=== PATIENT | male | born 1990 | race Caucasian/White ===

== ENCOUNTER 2023-05-17 09:01 | Observation (INO) | payer OTHER, SELFPAY ==
--- NOTE | ~2023-05-17 | CT_ITS ---
EXAMINATION: CT ABDOMEN AND PELVIS WITH CONTRAST CLINICAL INFORMATION: Right lower quadrant abdominal pain. Concern for appendicitis. COMPARISON: None available. TECHNIQUE: Multidetector volumetric images were obtained from the superior aspect of the liver through the pubic symphysis following administration 85 mL of Omnipaque 350 intravenous contrast. Sagittal and coronal reformatted images were obtained on the technologist's workstation. Oral contrast: No This CT examination was performed using dose optimization techniques as appropriate, variously including the following: *Automated exposure control *Adjustment of mA and/or kV according to patient size (this includes techniques or standardized protocols for targeted exams where dose is matched to indication/reason for exam; i.e. extremities or head) *Use of iterative reconstruction technique DLP: 575 mGy-cm FINDINGS: LUNG BASES: No pulmonary consolidation or pleural effusion. HEPATOBILIARY: The liver has normal size, shape, and attenuation. Gallbladder has a normal appearance. No radiopaque stones, wall thickening or pericholecystic fluid. No dilated bile ducts. PANCREAS: No edema, pancreatic ductal dilatation or mass. SPLEEN: Normal. ADRENAL GLANDS: Normal. KIDNEYS AND URETERS: The kidneys enhance symmetrically and have normal size and cortical thickness. No perinephric fluid collection, urolithiasis or hydroureteronephrosis. BLADDER: Normal. No calculi or wall thickening. BOWEL AND PERITONEUM: Stomach is unremarkable. No dilated loops of bowel. No abdominal free fluid or pneumoperitoneum. The proximal appendix is normal. There is mild haziness of fat around the tip of the appendix. The appendiceal tip measures 0.8 cm diameter. Moderate amount of fecal material is present within the colon. There appear to be some diverticula of the colon without evidence of diverticulitis. ABDOMINAL WALL: Unremarkable. VASCULATURE: Normal. LYMPH NODES: No pathologic sized lymph nodes in the abdomen or pelvis. No inguinal lymphadenopathy. PELVIC VISCERA: Prostate gland is unremarkable. No pelvic abscess. MUSCULOSKELETAL: No acute or suspicious osseous abnormality. CT/CT abdomen pelvis w IV con IMPRESSION: The imaging findings are suspicious for tip appendicitis (due to observation of slight prominence of the appendiceal tip and adjacent haziness/inflammation of the periappendiceal fat). The critical test result was discussed with Lilibeth Arevalo at 12:30 PM on 05/17/2023 and it was ascertained that the content and the importance of the findings was understood at the time of the direct communication.
[2023-05-17 09:11] VITALS: BP 146/94; PULSE 127; RESP 18; TEMP 36.7; O2SAT 99; BMI 28.2
--- NOTE | 2023-05-17 09:13 | ED_ITS ---
HPI - General Adult General Chief complaint: Abdominal Pain Stated complaint: Abd pain Time Seen by Provider: 05/17/23 09:05 Source: patient Mode of arrival: ambulatory Limitations: no limitations History of Present Illness HPI narrative: Patient is a 32 year old assigned male at with a history of IBS presenting to the emergency department today with right lower quadrant abdominal pain. Patient states that over the last 18 hours he has had right lower quadrant abdominal pain. Patient states that it started in the center of his stomach and how now settled into the right lower quadrant. Patient states that he has some nausea but has not vomited. Patient denies any dizziness, lightheadedness, vomiting, fever, chills, blurry vision, double vision, loss of vision, chest pain, difficulty breathing, shortness of breath, back pain, night sweats, pain with urination, increased urinary frequency, increased urinary urgency, blood in his urine or stool, syncope or a near syncopal episode, recent trauma or falls, bowel incontinence, bladder incontinence, bowel retention, bladder retention, or any other complaints at this time. Onset (ago): hour(s) Location: abdomen and right Severity scale (1-10): 4 Relieving factors: none Exacerbating factors: none Associated symptoms: nausea/vomiting Treatments prior to arrival: none Related Data Home Medications Medication Instructions Recorded Confirmed No Known Home Meds 05/17/23 05/17/23 Allergies Allergy/AdvReac Type Severity Reaction Status Date / Time No Known Allergies Allergy Verified 05/17/23 09:06 Review of Systems 2 Constitutional: Constitutional: Reports no additional constitutional complaints, Denies chills, Denies fever(s) and Denies night sweats Eyes: Eyes: Reports no additional eye complaints, Denies blurry vision, Denies change in vision, Denies diplopia, Denies eye discharge, Denies loss of vision and Denies eye pain ENT: Denies dizziness Cardiovascular: Cardiovascular: Reports no additional cardiovascular complaints, Denies chest pain, Denies lightheadedness, Denies Loss of Consciousness and Denies dyspnea Respiratory: Respiratory: Reports no additional respiratory complaints and Denies dyspnea Gastrointestinal: Gastrointestinal: Reports no additional gastrointestinal complaints, Reports abdominal pain, Denies melena, Denies hematochezia, Denies change in bowel habits, Denies change in stool character, Reports nausea and Denies vomiting Genitourinary: Genitourinary: Reports no additional male genitourinary complaints, Denies hematuria, Denies oliguria, Denies difficulty urinating, Denies dysuria, Denies urinary frequency, Denies urinary hesitancy, Denies urinary incontinence and Denies urinary urgency Musculoskeletal: Musculoskeletal: Reports no additional musculoskeletal complaints, Denies numbness and Denies tingling Neurologic: Denies dizziness, Denies loss of vision, Denies numbness and Denies tingling Psychiatric: Psychiatric: Reports no additional psychiatric complaints Endocrine: Endocrine: Reports no additional endocrine complaints Hematologic/Lymphatic: Hematologic/Lymphatic: Reports no additional hematologic/lymphatic complaints Allergic/Immunologic: Allergic/Immunologic: Reports no additional allergic/immunologic complaints PMFSH Past Medical History Attestation statement: The following information was validated with the patient. Source: old records reviewed and nursing notes reviewed Surgical History (Updated 05/17/23 @ 12:51 by Augustina Burleson PA-C) Hx of bilateral inguinal hernia repair Social History Social History Alcohol intake: current Patient Tobacco Use Status: Former Tobacco user Smoked in Last 30 Days: Yes Use of substances other than those prescribed or required for medical reasons: No Advance Directives: No Advance Directives Information Provided: No Nutrition Risks: No Nutritional Risk Physical Exam ED Vital Signs: Vital Signs - 24 hr 05/17/23 09:11 05/17/23 10:03 05/17/23 10:05 Temperature 98.1 F 98.3 F Pulse Rate 127 H 94 Respiratory Rate 18 18 15 Blood Pressure 146/94 H 133/74 Pulse Oximetry 99 96 Oxygen Delivery Method Room Air Room Air 05/17/23 11:19 Temperature 98.3 F Pulse Rate 94 Respiratory Rate 14 Blood Pressure 120/83 Pulse Oximetry 97 Oxygen Delivery Method Room Air BMI result Body Mass Index 28.2 Const General: cooperative, no acute distress, alert and awake Nutritional Appearance: well nourished Orientation/consciousness: patient oriented x3 Limitations: no limitations HENMT Head: Yes normal to inspection and Yes atraumatic Ears: hearing grossly normal bilaterally and external ears normal General nose exam: Normal external nose present, no nasal discharge noted and no epistaxis Face and sinus: Yes normal facial exam, No abrasion and No laceration Mouth: Normal oral and palatal mucosa present, no drooling and no muffled voice Eyes General: appearance normal, both eyes and all related structures Periorbital: periorbital findings normal Eyelids: Yes eyelids normal Conjunctivae: conjunctivae normal Pupils: Equal, round and reactive pupils present EOM: EOMs intact bilaterally Neck Neck: Yes normal visual inspection, Yes full ROM and Yes no lymphadenopathy Chest Chest palpation & inspection: normal inspection of the chest Resp Effort & Inspection: normal respiratory effort and able to speak in complete sentences GI Inspection: Yes normal to inspection Palpation (GI): Soft to palpation, not firm, Tenderness to palpation present (GI) in the RLQ, no guarding and not rigid Neuro General: patient oriented x3 and moves all extremities Cranial nerves: Yes Equal, round and reactive pupils present Cognition (Neuro): normal cognition Motor exam (neuro): 5/5 motor strength present throughout Sensory Exam: Normal double simultaneous stimulation for sensation Coordination: [id number] test normal Extrem General: Yes normal to inspection, Yes full ROM and Yes capillary refill normal Psych Appearance: grossly normal Mental Status: mental status grossly normal Affect: normal affect Attitude: cooperative Thought process: Normal thought process present Thought content: Normal thought content present Insight: Good insight present (Psych) Medications Administered Generic Name Dose Route Start Last Admin Trade Name Freq PRN Reason Stop Dose Admin Piperacillin Sod/Tazobactam 50 mls @ 100 mls/hr 05/17/23 12:45 05/17/23 13:51 Sod 3.375 gm/ Sodium Chloride IV 100 mls/hr Q6H HUONG Administration Discontinued Medications Generic Name Dose Route Start Last Admin Trade Name Freq PRN Reason Stop Dose Admin Iohexol 85 ml 05/17/23 10:52 05/17/23 10:52 Iohexol 350 Mg/Ml 100 Ml Infus..Btl IV 05/17/23 10:53 85 ml ONCE ONE Administration Morphine Sulfate 4 mg 05/17/23 09:06 05/17/23 10:03 Morphine Sulfate 4 Mg/Ml Cartridge IVPUSH 05/17/23 09:07 4 mg ONCE ONE Administration Protocol Ondansetron HCl 4 mg 05/17/23 09:06 05/17/23 10:04 Ondansetron Hcl 4 Mg/2 Ml Vial IVPUSH 05/17/23 09:07 4 mg ONCE ONE Administration Medical Decision Making Medical Decision Making MDM Narrative: Patient is a 32 year old assigned male at with a history of IBS presenting to the emergency department today with RLQ abdominal pain. Patient's physical exam was as noted in the physical exam portion of this note. Patient's blood work showed a mild WBC elevation of 11.6 but was otherwise unremarkable. Patient's urine showed no acute process. Patient's abdomen/pelvis CT showed evidence of an appendicitis. I spoke to the surgical team who agreed to admission. I explained my physical exam findings as well as all test results to the patient. I answered all questions asked by the patient. Patient verbalized agreement and understanding with this treatment plan and admission. Differential Diagnosis Differential Diagnoses: The differential diagnosis associated with the presentation includes Abdominal pain Appendicitis IBS Admission/Observation Consideration of admission/observation: Escalation of care including admission/observation considered Patient admitted. 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 My interpretation of these results are in the MDM Rationale portion of this note. 05/17/23 09:27 05/17/23 09:27 Labs: Lab Results 05/17/23 05/17/23 05/17/23 Range/Units 09:17 09:27 12:39 WBC 11.6 H (4.8-10.8) X10*3/uL RBC 5.14 (4.60-5.80) X10*6/uL Hgb 15.1 (14.0-18.0) g/dl Hct 44.5 (42.0-52.0) % MCV 86.6 (80.0-98.0) fL MCH 29.4 (27.0-33.0) pg MCHC 33.9 (31.0-36.0) g/dl RDW 12.3 (11.0-16.0) % Plt Count 269 (160-400) X10*3/uL MPV 8.8 L (9.4-12.4) fL Immature Gran % (Auto) 0.3 (0.0-0.4) % Neut % (Auto) 72.0 (45-73) % Lymph % (Auto) 20.6 (20-40) % [place] % (Auto) 6.2 (2-11) % Eos % (Auto) 0.7 (0-4) % Baso % (Auto) 0.2 (0-2) % Lymph # (Auto) 2.4 (1.2-4.9) X10*3/uL [place] # (Auto) 0.7 (0.1-1.2) X10*3/uL Eos # (Auto) 0.1 (0.0-0.4) X10*3/uL Baso # (Auto) 0.0 (0.0-0.2) X10*3/uL Abs Immat Gran (auto) 0.04 H (0.00-0.03) X10*3/uL Absolute Neuts (auto) 8.3 (2.0-8.3) x10*3/uL Absolute Nucleated RBC 0.000 (0.0-0.012) X10*3/uL Nucleated RBC % (auto) 0.0 (0.0-0.2) /100WBC Sodium 141 (135-145) mmol/L Potassium 3.3 (3.3-5.1) mmol/L Chloride 106 (96-108) mmol/L Carbon Dioxide 28 (22-29) mmol/L Anion Gap 10 L (12-20) BUN 14 (9-16) mg/dL Creatinine 1.16 (0.5-1.4) mg/dL Estim Creat Clear Calc 109.9 Estimated GFR > 60 Random Glucose 137 H (60-115) mg/dL Lactic Acid 1.2 (0.5-2.0) mmol/L Calcium 9.6 (8.4-10.2) mg/dL Magnesium 2.1 (1.6-2.6) mg/dL Total Bilirubin 0.6 (0.0-1.0) mg/dL AST 25 (5-37) U/L ALT 33 (0-40) U/L Alkaline Phosphatase 94 (39-117) U/L Total Protein 7.6 (6.5-8.0) g/dL Albumin 4.8 (3.5-5.0) g/dL Urine Color Yellow Urine Appearance Clear Urine pH 7.0 (5.0-9.0) Ur Specific [place] >= 1.030 H (1.005-1.025) Urine Protein Negative (Neg-Trace) mg/dL Urine Glucose (UA) Negative (Negative) mg/dL Urine Ketones Negative (Negative) mg/dL Urine Blood Negative (Negative) Urine Nitrite Negative (Negative) Ur Leukocyte Esterase Negative (Negative) Influenza Type A (PCR) NEGATIVE (Negative) Influenza Type B (PCR) NEGATIVE (Negative) RSV RNA Qual (PCR) NEGATIVE (Negative) SARS-CoV-2 RNA (RT-PCR) NEGATIVE (Negative) Independent Interpretation I performed an independent interpretation of an: CT Scan Interpretation: My interpretation is in agreement with the radiologist's impression of this imaging study. - EXAMINATION: CT ABDOMEN AND PELVIS WITH CONTRAST CLINICAL INFORMATION: Right lower quadrant abdominal pain. Concern for appendicitis. COMPARISON: None available. TECHNIQUE: Multidetector volumetric images were obtained from the superior aspect of the liver through the pubic symphysis following administration 85 mL of Omnipaque 350 intravenous contrast. Sagittal and coronal reformatted images were obtained on the technologist's workstation. Oral contrast: No This CT examination was performed using dose optimization techniques as appropriate, variously including the following: *Automated exposure control *Adjustment of mA and/or kV according to patient size (this includes techniques or standardized protocols for targeted exams where dose is matched to indication/reason for exam; i.e. extremities or head) *Use of iterative reconstruction technique DLP: 575 mGy-cm FINDINGS: LUNG BASES: No pulmonary consolidation or pleural effusion. HEPATOBILIARY: The liver has normal size, shape, and attenuation. Gallbladder has a normal appearance. No radiopaque stones, wall thickening or pericholecystic fluid. No dilated bile ducts. PANCREAS: No edema, pancreatic ductal dilatation or mass. SPLEEN: Normal. ADRENAL GLANDS: Normal. KIDNEYS AND URETERS: The kidneys enhance symmetrically and have normal size and cortical thickness. No perinephric fluid collection, urolithiasis or hydroureteronephrosis. BLADDER: Normal. No calculi or wall thickening. BOWEL AND PERITONEUM: Stomach is unremarkable. No dilated loops of bowel. No abdominal free fluid or pneumoperitoneum. The proximal appendix is normal. There is mild haziness of fat around the tip of the appendix. The appendiceal tip measures 0.8 cm diameter. Moderate amount of fecal material is present within the colon. There appear to be some diverticula of the colon without evidence of diverticulitis. ABDOMINAL WALL: Unremarkable. VASCULATURE: Normal. LYMPH NODES: No pathologic sized lymph nodes in the abdomen or pelvis. No inguinal lymphadenopathy. PELVIC VISCERA: Prostate gland is unremarkable. No pelvic abscess. MUSCULOSKELETAL: No acute or suspicious osseous abnormality. CT/CT abdomen pelvis w IV con IMPRESSION: The imaging findings are suspicious for tip appendicitis (due to observation of slight prominence of the appendiceal tip and adjacent haziness/inflammation of the periappendiceal fat). The critical test result was discussed with Lilibeth Arevalo at 12:30 PM on 05/17/2023 and it was ascertained that the content and the importance of the findings was understood at the time of the direct communication. Dictated By: Kyle Garcia MD Signed By: Electronically signed by Kyle Garcia MD 05/17/23 1232 Radiology Impression Discussion of test interpretation with radiology: I have reviewed the radiologist's reading. Critical Care Time Critical Care Time Critical Care Time: Yes Total Critical Care Time: 79 Attestation: I spent 79 minutes of Critical Care Time with this patient. This does not include time spent on separately reported billable procedures. Discharge Plan Discharge Clinical Impression: Acute appendicitis Patient Disposition: Admitted As Inpatient
--- NOTE | 2023-05-17 09:25 | PC.NURSE ---
ramón osorio aware had covid 3 weeks ago, pcr sent
[2023-05-17 09:32] LABS: MANUAL DIFF FLAG NO
[2023-05-17 09:35] LABS: Basophils Percent Auto 0.2 % (0-2); Eosinophils Absolute Auto 0.1 X10*3/uL (0.0-0.4); Eosinophils Percent Auto 0.7 % (0-4); Hematocrit 44.5 % (42.0-52.0); Hemoglobin 15.1 g/dl (14.0-18.0); Imm Gran Abs Auto 0.04 X10*3/uL (0.00-0.03); Imm Gran Pct Auto 0.3 % (0.0-0.4); Lymphocytes Absolute Auto 2.4 X10*3/uL (1.2-4.9); Lymphocytes Percent Auto 20.6 % (20-40); Mean Corpuscular HGB Conc 33.9 g/dl (31.0-36.0); Mean Corpuscular Hemoglobin 29.4 pg (27.0-33.0); Mean Corpuscular Volume 86.6 fL (80.0-98.0); Mean Platelet Volume 8.8 fL (9.4-12.4); Monocytes Absolute Auto 0.7 X10*3/uL (0.1-1.2); Monocytes Percent Auto 6.2 % (2-11); Neutrophils Absolute Auto 8.3 x10*3/uL (2.0-8.3); Platelet Count 269 X10*3/uL (160-400); Red Blood Count 5.14 X10*6/uL (4.60-5.80); Red Cell Distribution Width 12.3 % (11.0-16.0); White Blood Count 11.6 X10*3/uL (4.8-10.8)
[2023-05-17 09:47] LABS: Lactic Acid 1.2 mmol/L (0.5-2.0)
[2023-05-17 09:52] LABS: Alanine Aminotransferase 33 U/L (0-40); Albumin Level 4.8 g/dL (3.5-5.0); Alkaline Phosphatase 94 U/L (39-117); Anion Gap 10 (12-20); Aspartate Amino Transferase 25 U/L (5-37); Bilirubin Total 0.6 mg/dL (0.0-1.0); Blood Urea Nitrogen 14 mg/dL (9-16); Calcium 9.6 mg/dL (8.4-10.2); Carbon Dioxide 28 mmol/L (22-29); Chloride 106 mmol/L (96-108); Creatinine Clr Calc Pharmacy 109.9; Estimated Glomerular Filt Rate > 60; Glucose Random 137 mg/dL (60-115); Magnesium 2.1 mg/dL (1.6-2.6); Potassium 3.3 mmol/L (3.3-5.1); Sodium 141 mmol/L (135-145); Total Protein 7.6 g/dL (6.5-8.0)
[2023-05-17 10:03] VITALS: RESP 18
[2023-05-17] MEDS: Morphine Sulfate 4 MG/ML CARTRIDGE IVPUSH ×3 (10:03→19:00)
[2023-05-17] MEDS: ondansetron HCL 4 MG/2 ML VIAL IVPUSH (10:04)
[2023-05-17 10:05] VITALS: BP 133/74; PULSE 94; RESP 15; TEMP 36.8; O2SAT 96
[2023-05-17 10:18] LABS: Influenza A PCR NEGATIVE (Negative); Influenza B PCR NEGATIVE (Negative); Resp Syncy Virus RNA Qual PCR NEGATIVE (Negative); SARS COV2 PCR INHOUSE NEGATIVE (Negative)
[2023-05-17] MEDS: iohexoL 350 MG/ML 100 ML INFUS..BTL 85 ML IV (10:52)
[2023-05-17 11:19] VITALS: BP 120/83; PULSE 94; RESP 14; TEMP 36.8; O2SAT 97
--- NOTE | 2023-05-17 12:44 | P.HPGS_ITS ---
<Statement entered by Guevara Ang MD - 05/17/23 13:50> 32-year-old male patient with a recurrent episode of abdominal pain in the right lower quadrant. The previous episode occurred approximately 6 months ago but subsequently resolved. The current episode began approximately 16 hours prior to my examination. He denies any associated nausea, vomiting, diarrhea or co nstipation. Examination reveals tenderness in the right lower quadrant over McBurney's point. Workup is consistent with acute appendicitis. We discussed treatment with antibiotics verses laparoscopic appendectomy. As this is recurrent episode laparoscopic appendectomy is recommended. After discussion of the procedure, risks, and alternatives, he consents to the laparoscopic or possible open appendectomy. History of Present Illness History of Present Illness Date of Service: 05/17/23 <Augustina Burleson PA-C - Last Filed: 05/17/23 13:11> 05/18/23 <Guevara Ang MD - Last Filed: 05/18/23 09:21> Chief complaint: acute appendicitis <Augustina Burleson PA-C - Last Filed: 05/17/23 13:11> Narrative: Nayan Licona is a 32 year old male with PMH of IBS who presented to the ED with complaints of RLQ abdominal pain. He reports the pain started last night and was periumbilical it eventually migrated and persisted in the RLQ. It is sharp in nature and associated with nausea without vomiting. He denies fevers, chills, diarrhea, constipation. He was tachycardic upon arrival. Work up in the ED included CBC, BMP, LFTs which was significant for a leukocytosis of 11.6. CT scan abd/pelvis was performed which showed slight prominence of the appendiceal tip and adjacent haziness/inflammation of the periappendiceal fat. <Augustina Burleson PA-C - Last Filed: 05/17/23 13:11> Review of Systems Constitutional: Constitutional: Denies chills and Denies fever(s) <RICK Everett Last Filed: 05/17/23 13:11> ENT: Denies dizziness <RICK Everett Last Filed: 05/17/23 13:11> Cardiovascular: Cardiovascular: Denies chest pain and Denies dyspnea <Augustina Burleson PA-C - Last Filed: 05/17/23 13:11> Respiratory: Respiratory: Denies dyspnea <Augustina Burleson PA-C - Last Filed: 05/17/23 13:11> Gastrointestinal: Gastrointestinal: Reports as per HPI <Augustina Burleson PA-C - Last Filed: 05/17/23 13:11> Genitourinary: Genitourinary: Denies hematuria and Denies dysuria <Augustina Burleson PA-C - Last Filed: 05/17/23 13:11> Integumentary/Breasts: Skin/Breast: Denies rash and Denies jaundice <Augustina Burleson PA-C - Last Filed: 05/17/23 13:11> Neurologic: Denies dizziness <Augustina Burleson PA-C - Last Filed: 05/17/23 13:11> [facility] Surgical History Surgical History: Surgical History (Updated 05/17/23 @ 12:51 by Augustina Burleson PA-C) Hx of bilateral inguinal hernia repair <Augustina Burleson PA-C - Last Filed: 05/17/23 13:11> Social History Social History: Social History Alcohol intake: current Patient Tobacco Use Status: Former Tobacco user Smoked in Last 30 Days: Yes Use of substances other than those prescribed or required for medical reasons: No Advance Directives: No Advance Directives Information Provided: No Nutrition Risks: No Nutritional Risk <Augustina Burleson PA-C Last Filed: 05/17/23 13:11> Meds Allergies/Adverse reactions: Allergies Allergy/AdvReac Type Severity Reaction Status Date / Time No Known Allergies Allergy Verified 05/17/23 09:06 <Augustina Burleson PA-C - Last Filed: 05/17/23 13:11> Home medications: Home Medications Medication Instructions Recorded Confirmed Last Taken Type No Known Home Meds 05/17/23 05/17/23 Unknown History <RICK Everett Last Filed: 05/17/23 13:11> Physical Exam Vital Signs: Vital Signs: Last Vital Signs Temp 98.3 F 05/17/23 11:19 Pulse 94 05/17/23 11:19 Resp 14 05/17/23 11:19 BP 120/83 05/17/23 11:19 Pulse Ox 97 05/17/23 11:19 O2 Del Method Room Air 05/17/23 11:19 BMI result Body Mass Index 28.2 <FAINA Everett Last Filed: 05/17/23 13:11> Const: General: comfortable, no acute distress and alert <FAINA Everett Last Filed: 05/17/23 13:11> Orientation/consciousness: patient oriented x3 <FAINA Everett Last Filed: 05/17/23 13:11> Neck: Neck: Yes no JVD <FAINA Everett Last Filed: 05/17/23 13:11> Resp: Effort & Inspection: normal respiratory effort <FAINA Everett Last Filed: 05/17/23 13:11> GI: Inspection: No distended and Yes scar (well healed b/l open inguinal hernia repair scars) <FAINA Everett Last Filed: 05/17/23 13:11> Palpation (GI): Soft to palpation, Tenderness to palpation present (GI) in the RLQ, at McBurney's point and Rovsing's sign positive, no guarding and not rigid <FAINA Everett Last Filed: 05/17/23 13:11> Skin: General skin exam: no rashes or lesions noted and no jaundice <FAINA Everett Last Filed: 05/17/23 13:11> Neuro: General: patient oriented x3 and moves all extremities <Augustina Burleson PA-C Last Filed: 05/17/23 13:11> Results Results Labs: Short CBC 05/17/23 Range/Units 09:27 WBC 11.6 H (4.8-10.8) X10*3/uL Hgb 15.1 (14.0-18.0) g/dl Hct 44.5 (42.0-52.0) % Plt Count 269 (160-400) X10*3/uL BMP 05/17/23 09:27 Sodium 141 Potassium 3.3 Chloride 106 Carbon Dioxide 28 BUN 14 Creatinine 1.16 Calcium 9.6 Liver Function 05/17/23 Range/Units 09:27 Total Bilirubin 0.6 (0.0-1.0) mg/dL AST 25 (5-37) U/L ALT 33 (0-40) U/L Alkaline Phosphatase 94 (39-117) U/L Albumin 4.8 (3.5-5.0) g/dL <Augustina Burleson PA-C - Last Filed: 05/17/23 13:11> Abdomen CT scan report/results: report reviewed and image reviewed <RICK Everett Last Filed: 05/17/23 13:11> Assessment and Plan (1) Acute appendicitis: Status: Acute <RICK Everett Last Filed: 05/17/23 13:11> 32 year old male with 1 day of RLQ abd pain associated with nausea with tenderness at mcburneys point and CT scan showing prominent appendix with mild surrounding inflammation consistent with acute appendicitis. The patient will be admitted to the surgical service for further treatment of the acute appendicitis. He will be made NPO at midnight, started on IVF and IV zosyn. It was recommended to proceed with laparoscopic possible open appendectomy. Risks, benefits, alternatives of laparoscopic possible open appendectomy were reviewed with the patient and included but not limited to bleeding, infection, numbness, pain, scarring, bowel or bladder injury or leak and the patient wishes to proceed. He is added onto the OR schedule for tomorrow. <Augustina Burleson PA-C - Last Filed: 05/17/23 13:11> Quality Stroke Does the patient have a stroke diagnosis?: No <Guevara Ang MD - Last Filed: 05/18/23 09:21> VTE Prior VTE?: No <Guevara Ang MD - Last Filed: 05/18/23 09:21> VTE Risk Level:: Surgical - low <RICK Everett Last Filed: 05/17/23 13:11> VTE Device Contraindication: N/A - Device Ordered <RICK Everett Last Filed: 05/17/23 13:11> VTE Drug Contraindication: Treatment Not Indicated <Augustina Burleson PA-C - Last Filed: 05/17/23 13:11> Procedures Date of Service Date of Service: 05/17/23 <Augustina Burleson PA-C - Last Filed: 05/17/23 13:11> 05/18/23 <Guevara Ang MD - Last Filed: 05/18/23 09:21>
[2023-05-17 12:55] LABS: Appearance Urine Clear; Color Urine Yellow; Glucose Urine UA Negative (Negative); Leukocyte Esterase Urine Negative (Negative); Nitrite Urine Negative (Negative); Specific Gravity - Urine >= 1.030 (1.005-1.025); Urine Blood Negative (Negative); Urine Ketones Negative (Negative); Urine Protein Negative (Neg-Trace)
--- NOTE | 2023-05-17 13:04 | PHA.MEDREC ---
Pharmacy Consult ? Medication Reconciliation Pharmacy has completed the medication reconciliation.Patient confirmed that he is taking no home medications.
[2023-05-17 13:08] VITALS: BP 125/81; PULSE 95; RESP 18; TEMP 36.9; O2SAT 97
[2023-05-17] MEDS: Piperacillin Sodium/Tazobactam 3.375 GM in 0.9 % Sodium Chloride 50 ML IV ×2 (13:51→19:00)
[2023-05-17] MEDS: 0.9 % Sodium Chloride Flush 3 ML SYRINGE IVFLUSH (14:16)
[2023-05-17] MEDS: Acetaminophen 325 MG TABLET 650 MG PO (17:26)
--- NOTE | 2023-05-17 17:38 | MHC.CM.ED ---
CM met with patient assigned to observation in [place]. A&Ox3. YUMI reviewed and signed. Original given and copy to medical records. 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 Lives with S.Charlee. Maddie Bethea ([phone]). Pt has no services or DME. Drives. D/C plan: Home without services. Family to transport. CM will follow for any discharge needs.
[2023-05-17 19:42] VITALS: BP 122/59; PULSE 75; RESP 20; TEMP 36.9; O2SAT 95
--- NOTE | 2023-05-17 19:46 | PC.NURSE ---
Assumed care of pt. Pt lying on stretcher, family at bedside, no acute distress at this time. Pt denies pain at this time, no acute distress noted. Continuing plan of care for expected surgery in am.
[2023-05-18] VITALS (13 sets, daily range): BP systolic 108–134; BP diastolic 53–81; PULSE 55–106; RESP 15–20; TEMP 26.7–37.2; O2SAT 95–98
[2023-05-18] MEDS: Piperacillin Sodium/Tazobactam 3.375 GM in 0.9 % Sodium Chloride 50 ML IV ×3 (00:42→12:21)
[2023-05-18] MEDS: Morphine Sulfate 4 MG/ML CARTRIDGE IVPUSH ×3 (00:43→11:07)
--- NOTE | 2023-05-18 03:08 | PC.NURSE ---
Resumed care of pt. Pt eyes closed, respirations even and unlabored, no acute distress. Continuing plan of care.
[2023-05-18] MEDS: Acetaminophen 325 MG TABLET 650 MG PO (08:25)
--- NOTE | 2023-05-18 09:21 | P.PNGS_ITS ---
Subjective Subjective Date of Service: 05/18/23 Interval history: Nayan continues to report pain in the right lower quadrant, essentially the same this morning. Denies nausea or vomiting. Physical Exam 2 Vital Signs: Vital Signs: Last Vital Signs Temp 98.0 F 05/18/23 08:09 Pulse 55 05/18/23 08:09 Resp 20 05/18/23 08:09 BP 112/53 L 05/18/23 08:09 Pulse Ox 98 05/18/23 08:09 O2 Del Method Room Air 05/18/23 08:09 BMI result Body Mass Index 28.2 Const: General: no acute distress Nutritional Appearance: well nourished Orientation/consciousness: patient oriented x3 Limitations: no limitations Resp: Effort & Inspection: normal respiratory effort GI: Inspection: Yes normal to inspection Palpation (GI): Soft to palpation, Tenderness to palpation present (GI) in the RLQ and at McBurney's point, no guarding, not rigid and no hernias Rectal Exam - Male: Yes deferred Neuro: General: patient oriented x3 Extrem: General: No edema Objective Data Active Medications Acetaminophen (Acetaminophen 325 Mg Tablet) 650 mg PO Q6H PRN PRN Reason: Pain, Mild (Pain Scale 1-3) Last Admin: 05/18/23 08:25 Dose: 650 mg Documented By: BE Piperacillin Sod/Tazobactam (Sod 3.375 gm/ Sodium Chloride) 50 mls @ 100 mls/hr IV Q6H [facility] Last Infusion: 05/18/23 07:04 Dose: Infused Documented By: RAOUL Morphine Sulfate (Morphine Sulfate 4 Mg/Ml Cartridge) 4 mg IVPUSH Q4H PRN; Protocol PRN Reason: Pain, Severe (Pain Scale 7-10) Last Admin: 05/18/23 05:29 Dose: 4 mg Documented By: RAOUL Ondansetron HCl (Ondansetron Hcl 4 Mg/2 Ml Vial) 4 mg IVPUSH Q8H PRN PRN Reason: Nausea and Vomiting Sodium Chloride (0.9 % Sodium Chloride Flush 3 Ml Syringe) [facility] Last Admin: 05/18/23 08:21 Dose: Not Given Documented By: BE Non-Admin Reason: See Note Labs 05/17/23 09:27 05/17/23 09:27 Labs: Laboratory Results - last 24 hr 05/17/23 05/17/23 05/17/23 09:17 09:27 12:39 MCV 86.6 MCH 29.4 MCHC 33.9 RDW 12.3 Plt Count 269 MPV 8.8 L Immature Gran % (Auto) 0.3 Neut % (Auto) 72.0 Lymph % (Auto) 20.6 [place] % (Auto) 6.2 Eos % (Auto) 0.7 Baso % (Auto) 0.2 Lymph # (Auto) 2.4 [place] # (Auto) 0.7 Eos # (Auto) 0.1 Baso # (Auto) 0.0 Abs Immat Gran (auto) 0.04 H Absolute Neuts (auto) 8.3 Absolute Nucleated RBC 0.000 Nucleated RBC % (auto) 0.0 Anion Gap 10 L Estim Creat Clear Calc 109.9 Estimated GFR > 60 Random Glucose 137 H Lactic Acid 1.2 Calcium 9.6 Magnesium 2.1 Total Bilirubin 0.6 AST 25 ALT 33 Alkaline Phosphatase 94 Total Protein 7.6 Albumin 4.8 Urine Color Yellow Urine Appearance Clear Urine pH 7.0 Ur Specific [place] >= 1.030 H Urine Protein Negative Urine Glucose (UA) Negative Urine Ketones Negative Urine Blood Negative Urine Nitrite Negative Ur Leukocyte Esterase Negative Influenza Type A (PCR) NEGATIVE Influenza Type B (PCR) NEGATIVE RSV RNA Qual (PCR) NEGATIVE SARS-CoV-2 RNA (RT-PCR) NEGATIVE Procedures Date of Service Date of Service: 05/18/23 Progress Note: A&P Assessment and plan (1) Acute appendicitis: Status: Acute Plan 32-year-old male patient presenting with complaints of right lower quadrant abdominal pain found on CT have a thickened appendix tip with surrounding inflammation suggestive of acute appendicitis. He is scheduled for laparoscopic or possible open appendectomy later today. I again reviewed the procedure, risks and alternatives and he consents to the laparoscopic or possible open appendectomy. Time Spent With Patient Time: Total time managing care of this patient today ____ minutes. Quality Stroke Does the patient have a stroke diagnosis?: No VTE Prior VTE?: No VTE Risk Level:: Surgical - low VTE Device Contraindication: N/A - Device Ordered VTE Drug Contraindication: Treatment Not Indicated
--- NOTE | 2023-05-18 09:25 | MHC.SHP ---
Pre-Procedural Eval Section A - 24 Hr Update-Section A only Date of Service: 05/18/23 The patient is an INPATIENT: Yes The patient has been examined within 24 hours of the surgical procedure. The History & Physical has been completed within 30 days and I have reviewed it.: Yes Section B - Complete if H&P > 30 days Chief Complaint: acute appendicitis Allergies: Allergies Allergy/AdvReac Type Severity Reaction Status Date / Time No Known Allergies Allergy Verified 05/17/23 09:06 Plan Diagnosis/Plan: Unchanged I have reviewed the history and physical and performed a pertinent physical examination on my patient. No changes have occurred unless specified. Time Spent With Patient Time: Total time managing care of this patient today ____ minutes.
[2023-05-18] MEDS: Lactated Ringers 1,000 ML 50 ML IVCONT (12:54)
--- NOTE | 2023-05-18 13:43 | HO.ANESPROP2 ---
PMFSH Active Problems Active Problems: All Active Problems (Updated 05/17/23 @ 14:13 by MARY Barksdale) Acute appendicitis (Acute) Surgical History Surgical History Hx of bilateral inguinal hernia repair History of Problems with Anesthesia: No Social History Social History Alcohol intake: current Patient Tobacco Use Status: Former Tobacco user Meds Allergies Allergy/AdvReac Type Severity Reaction Status Date / Time No Known Allergies Allergy Verified 05/18/23 12:34 Active Medications: Current Medications Acetaminophen (Acetaminophen 325 Mg Tablet) 650 mg PO Q6H PRN PRN Reason: Pain, Mild (Pain Scale 1-3) Last Admin: 05/18/23 08:25 Dose: 650 mg Piperacillin Sod/Tazobactam (Sod 3.375 gm/ Sodium Chloride) 50 mls @ 100 mls/hr IV Q6H [facility] Last Admin: 05/18/23 12:21 Dose: 100 mls/hr Lactated Ringer's (Lr) 1,000 mls @ 50 mls/hr IVCONT .Q20H [facility] Last Admin: 05/18/23 12:54 Dose: 50 mls/hr Morphine Sulfate (Morphine Sulfate 4 Mg/Ml Cartridge) 4 mg IVPUSH Q4H PRN; Protocol PRN Reason: Pain, Severe (Pain Scale 7-10) Last Admin: 05/18/23 11:07 Dose: 4 mg Ondansetron HCl (Ondansetron Hcl 4 Mg/2 Ml Vial) 4 mg IVPUSH Q8H PRN PRN Reason: Nausea and Vomiting Sodium Chloride (0.9 % Sodium Chloride Flush 3 Ml Syringe) 3 ml IVFLUSH QSHIFT [facility] Last Admin: 05/18/23 08:21 Dose: Not Given Home Medications Medication Instructions Recorded Confirmed Last Taken Type No Known Home Meds 05/17/23 05/17/23 Unknown History Exam Height,Weight and Vital Signs: Height 6 ft Weight 94.2 kg Last Vital Signs Temp 98.5 F 05/18/23 12:49 Pulse 93 05/18/23 12:49 Resp 15 05/18/23 12:49 BP 134/81 05/18/23 12:49 Pulse Ox 98 05/18/23 12:49 O2 Del Method Room Air 05/18/23 12:49 Pertinent Lab Results Pertinent Lab Results: Laboratory Tests 05/17/23 05/17/23 05/17/23 09:17 09:27 12:39 WBC 11.6 H RBC 5.14 Hgb 15.1 Hct 44.5 MCV 86.6 MCH 29.4 MCHC 33.9 RDW 12.3 Plt Count 269 MPV 8.8 L Immature Gran % (Auto) 0.3 Neut % (Auto) 72.0 Lymph % (Auto) 20.6 [place] % (Auto) 6.2 Eos % (Auto) 0.7 Baso % (Auto) 0.2 Lymph # (Auto) 2.4 [place] # (Auto) 0.7 Eos # (Auto) 0.1 Baso # (Auto) 0.0 Abs Immat Gran (auto) 0.04 H Absolute Neuts (auto) 8.3 Absolute Nucleated RBC 0.000 Nucleated RBC % (auto) 0.0 Sodium 141 Potassium 3.3 Chloride 106 Carbon Dioxide 28 Anion Gap 10 L BUN 14 Creatinine 1.16 Estim Creat Clear Calc 109.9 Estimated GFR > 60 Random Glucose 137 H Lactic Acid 1.2 Calcium 9.6 Magnesium 2.1 Total Bilirubin 0.6 AST 25 ALT 33 Alkaline Phosphatase 94 Total Protein 7.6 Albumin 4.8 Urine Color Yellow Urine Appearance Clear Urine pH 7.0 Ur Specific [place] >= 1.030 H Urine Protein Negative Urine Glucose (UA) Negative Urine Ketones Negative Urine Blood Negative Urine Nitrite Negative Ur Leukocyte Esterase Negative Influenza Type A (PCR) NEGATIVE Influenza Type B (PCR) NEGATIVE RSV RNA Qual (PCR) NEGATIVE SARS-CoV-2 RNA (RT-PCR) NEGATIVE Airway Mallampati Class: III TM Dist: >3cm Neck ROM: Full Loose/Missing/Broken Teeth: No Heart: RRR Lungs: CTA Assessment and Plan Final Anesthetic Review History of Problems with Anesthesia: No NPO: Yes ASA Class: I Final Preanesthetic Review: Meds/Allgs Chart Reviewed, Consent Obtained/Reviewed and Anes Risks/Benef Reviewed Patient Risk: Low Procedure Risk: Low Anesthetic Plan Anesthetic Plan: GA Disposition: Standard PACU
--- NOTE | 2023-05-18 15:10 | P.OP_ITS ---
Operative Note Operative Note Date of Service: 05/18/23 Narrative: Preoperative diagnosis: Acute appendicitis Postoperative diagnosis: Same Procedure: Laparoscopic appendectomy Surgeon: Guevara Ang MD Editing Computer Publisher: Augustina Burleson PA-C., ANNI Zepeda Anesthesia: General endotracheal Indications for procedure: 32-year-old male patient presenting with complaints of abdominal pain in the right upper quadrant found on CT to have areas of inflammation surrounding the tip of the appendix felt to be suspicious for acute appendicitis Operative findings: Mildly inflamed appendix Specimen: Appendix Estimated blood loss: Less than 1 mL Complications: None Procedure details: Patient was brought to the OR and placed in a supine position. After administering general anesthesia the patient's abdomen was prepped with ChloraPrep and draped in a sterile fashion. A surgical time-out was called and consent confirmed. Patient received preoperative antibiotics and Venodyne boots were in place. Local anesthesia consisting of 0.75% Sensorcaine with epinephrine was infiltrated in periumbilical region. A 5 mm incision was made below the umbilicus and carried down through subcutaneous tissue. A Veress needle was then inserted while elevating abdominal cavity with towel clips. After a positive drop test the abdomen was insufflated to a pressure of 15 mm of mercury. The Veress needle was removed and a 5 mm trocar inserted. The camera was then inserted in the abdomen explored. A 2nd 5 mm trocars placed in the lower midline. A 12 mm trocar was then placed in the left lower quadrant. The patient was then placed in a Trendelenburg position and rotated to the left. The appendix was identified in the right lower quadrant and brought up using blunt dissecting clamps. The mesentery of the appendix was then divided using the LigaSure. The appendiceal artery was cauterized and divided using the LigaSure. Dissection was continued down to the base of the cecum. An Endo-ANNA stapler with a purple reload was then used to divide the appendix at the base with the cecum. The appendix was then placed in Endo-Catch bag and brought out through the left lower quadrant incision. The abdomen was then irrigated with saline solution and suctioned dry. Wounds were checked for hemostasis. CO2 was then evacuated from the abdominal cavity and all trocars removed. Fascia was closed in the left lower quadrant incision using a [id number] 0 Polysorb suture. Skin was closed at all incisions using a subcuticular 4-0 Polysorb suture. Steri-Strips 2 x 2 gauze and Tegaderm were then applied. The patient tolerated the procedure well. Sponge, instrument, needle counts reported as correct. The patient was transferred to PACU in stable condition.
[2023-05-18] MEDS: ondansetron HCL 4 MG/2 ML VIAL IVPUSH (15:46)
--- NOTE | 2023-05-18 16:11 | MHC.CM.PN ---
pt home no servie
[2023-05-18] MEDS: oxyCODONE HCl Immed Release 5 MG TABLET PO (17:06)
--- NOTE | 2023-05-20 10:55 | PM.DS ---
DS: Providers Provider Date of Service: 05/18/23 Date of admission: 05/17/23 12:40 Date of discharge: 05/18/23 Primary care physician: Isaura Man MD Admitting clinician: Guevara Ang Discharging clinician: Guevara Ang DS: Diagnosis Discharge Diagnosis (1) Acute appendicitis: Status: Acute DS: Summary Hospital Course Hospital Course: Nayan Licona is a 32 year old male with PMH of IBS who presented to the ED with complaints of RLQ abdominal pain. He reports the pain started the night prior to admission and was periumbilical it eventually migrated and persisted in the RLQ. It is sharp in nature and associated with nausea without vomiting. He denies fevers, chills, diarrhea, constipation. He was tachycardic upon arrival. Work up in the ED included CBC, BMP, LFTs which was significant for a leukocytosis of 11.6. CT scan abd/pelvis was performed which showed slight prominence of the appendiceal tip and adjacent haziness/inflammation of the periappendiceal fat On examination he was afebrile with stable vital signs. Abdominal examination reveals tenderness in the right lower quadrant without rebound guarding or rigidity. Patient was admitted to the surgical service in preparation made for laparoscopic appendectomy which was performed on 05/18/2023. Operative findings were consistent with mild early acute appendicitis without perforation. Tolerated the procedure well and remained hemodynamically stable. He was transferred to PACU in observed for approximately 1 hour. He was subsequently discharged to home in stable condition. He will follow-up in the office in approximately 1 week for wound examination. He should avoid lifting greater than 10 lb for the next 2 weeks. Time spent discussing smoking cessation with patient: 3 to 10 minutes Status at Discharge Functional status at discharge: independent ambulation Overall status at discharge: patient is progressing back to baseline Time Attestation Total time managing care of this patient today: 20 mintues. Discharge Coordination Time (in mins): Twenty Quality: Safe Use of Opioids Does Pt have an Active Cancer Diagnosis on the Problem List?: No Quality: Stroke Does the patient have a stroke diagnosis?: No Physical Exam Vital Signs: Vital Signs: Last Vital Signs Temp 97.8 F 05/18/23 16:50 Pulse 63 05/18/23 16:50 Resp 16 05/18/23 16:50 BP 120/61 05/18/23 16:50 Pulse Ox 98 05/18/23 16:50 O2 Del Method Room Air 05/18/23 16:50 O2 Flow Rate 6 05/18/23 15:25 BMI result Body Mass Index 28.2 Const: General: no acute distress Nutritional Appearance: well nourished Orientation/consciousness: patient oriented x3 Limitations: no limitations Resp: Effort & Inspection: normal respiratory effort GI: Inspection: Yes normal to inspection Palpation (GI): Soft to palpation, Tenderness to palpation present (GI) (Incisional), no guarding, not rigid and no hernias Rectal Exam - Male: Yes deferred Neuro: General: patient oriented x3 Extrem: General: No edema DS: Data Data Completed and Pending Pending studies at discharge: Pending at discharge 05/18/23 14:56 Surgical [PTH] Routine Labs on day of discharge: Preliminary micro results at discharge 05/17/23 09:38 Blood Culture - Preliminary Blood - Venous No growth after 48 hours. 05/17/23 09:27 Blood Culture - Preliminary Blood - Venous No growth after 48 hours. Discharge Plan Discharge Anticipated Discharge Date/Time: 05/18/23 16:04 Patient Disposition: Home, Self-Care Discharge Diagnosis: Acute appendicitis Referrals: Leah Man MD [Primary Care Provider] - 1 Week Guevara Ang MD [Physician] - 1 Week Discharge Medications: New oxycodone 5 mg tablet 5 mg PO Q6H PRN (Reason: pain (scale score 7-10)) Qty: 15 0RF Rx Instructions: Partial Fill upon patient request. Discharge Orders: Discharge Order (Routine); Ordered 05/18/23 Ordered By: Guevara Ang Diet: Advance to usual diet Activity on Discharge: No heavy lifting Stand Alone Forms: Patient Portal Discharge page Activity Restrictions/Additional Instructions: If the incision area is tender, you may apply an ice pack for short intervals (No more than 20 minutes on, followed by at least 20 minutes off). Do not apply heat. Do not use creams, lotions, or topical antibiotics. Ok to shower. Remove clear dressings 3 days following your procedure. You have steri strips (small white cloth strips) covering your incision- these will fall off ~1 week. No heavy lifting (>10lbs) or strenuous activity! Take Tylenol Extra-strength 1-2 tabs every 6 hours for the first day, then as needed. Oxycodone every 6-8 hours as needed for pain. Colace 100 mg every day as needed for constipation. Follow up in office with Dr. Ang in 1 week. ([phone]) Call Your Doctor If: -Your temperature exceeds 101.5? F -You experience excessive pain or swelling -You have an unexpected reaction to medication -You have excessive bleeding -You experience continued vomiting/nausea -Your incision begins to separate -Your incision shows signs of infection such as increased redness, swelling, excessive pain, drainage (light blood or clear fluid is normal) or heat Care Plan Goals: Return to normal diet and activity after full recovery Health Concerns: Abdominal pain right lower quadrant Plan of Treatment: Laparoscopic appendectomy performed on 05/18/2023 Assessment: Early acute appendicitis Discharge Date/Time: 05/18/23 17:21
== END 2023-05-18 17:21 | disposition home or self-care (01) ==
LOC: HO.ED 11:10 → HO.EDOVER 12:47 → HO.S3 05-18 15:39
PROVIDERS: Physician Assistant Medical; Surgery; Admitting Provider Physician Assistant Surgical; Emergency Provider Emergency Medicine Emergency Medical Services; PCP Internal Medicine; Visit Provider Physician Assistant Surgical
PROC: 0DTJ4ZZ Resection of Appendix, Percutaneous Endoscopic Approach (ICD-10-PCS; CPT 44970; principal; 2023-05-18 13:30)
DX: K35.80 Unspecified acute appendicitis (principal); R10.11 Right upper quadrant pain; K58.9 Irritable bowel syndrome, unspecified; Z11.52 Encounter for screening for COVID-19; Z20.828 Contact with and (suspected) exposure to other viral communicable diseases
CPT/HCPCS: 44970; 0241U; 74177; 80053; 81003; 83605; 83735; 85025; 87040; 88304; 96365; 96366; 96375; 96376; 99221; 99285; J0131; J1100; J1885; J2250; J2270; J2371; J2405; J2543; J2704; J2795; J3010; J7120; Q9967

== ENCOUNTER → 2023-05-17 12:40 | Outpatient (BNV) | payer OTHER, SELFPAY | PROVIDERS: Admitting Provider Physician Assistant Surgical; Emergency Provider Emergency Medicine Emergency Medical Services; PCP Internal Medicine; Visit Provider Surgery | DX: K35.80 Unspecified acute appendicitis (principal) | CPT/HCPCS: 44970; 99024; 99222 ==

== ENCOUNTER 2023-05-31 11:08 | Outpatient (AMB) | payer OTHER, SELFPAY ==
--- NOTE | 2023-05-31 11:09 | MHC.OFFVIS ---
Intake Vital Signs 05/31/23 11:14 Height 6 ft Weight 212 lb 4 oz BMI 28.8 BP 137/83 Blood Pressure Location Lt brachial Position Sitting Pulse 92 Intake Visit Reasons: S/P Appendectomy Intake Note: Patient is seen in office for post op assessment post laparoscopic appendectomy. Pt c/o:no concerns at the time of visit, healing as expected Op:05/18/23 Education Managers Required: No Accompanied by: Self / Same As Patient Allergies No Known Allergies Allergy (Verified 05/31/23 11:10) HPI HPI Comments History of Present Illness Details 32-year-old male patient returning 1 week following laparoscopic appendectomy for acute appendicitis. He reports feeling well with no current abdominal pain, nausea or vomiting. He denies any issues with his incisions as well. [facility] Surgical History History of laparoscopic appendectomy (05/18/23) Hx of bilateral inguinal hernia repair Social History Alcohol intake: current Patient Tobacco Use Status: Former Tobacco user Physical Exam Vital Signs: Last Vital Signs Pulse 92 05/31/23 11:14 BP 137/83 05/31/23 11:14 BMI result Body Mass Index 28.8 Const General: no acute distress Resp Effort & Inspection: normal respiratory effort GI Other: Trocar incisions are clean, dry, and intact without redness or discharge. Assessment & Plan Assessment & Plan (1) Acute appendicitis: Code(s): K35.80 - Unspecified acute appendicitis Qualifiers: Acute appendicitis type: with localized peritonitis Appendicitis gangrene presence: without gangrene Appendicitis perforation presence: without perforation Appendicitis abscess presence: without abscess Qualified Code(s): K35.30 - Acute appendicitis with localized peritonitis, without perforation or gangrene Plan 32-year-old male patient status post laparoscopic appendectomy 1 week ago. His wounds are clean, dry, and intact without redness or discharge. He should continue to avoid lifting greater than 10 lb for 1 more week after which he may resume normal activity and return to work. He should follow up as needed. Coding Level of Care Code Global (07846) Diagnoses Acute appendicitis with localized peritonitis, without perforation, abscess, or gangrene K35.30 Acute appendicitis type: with localized peritonitis Appendicitis gangrene presence: without gangrene Appendicitis perforation presence: without perforation Appendicitis abscess presence: without abscess
[2023-05-31 11:14] VITALS: BP 137/83; PULSE 92; BMI 28.8
== END 2023-05-31 11:58 | disposition home or self-care (01) ==
PROVIDERS: PCP Internal Medicine; Visit Provider Surgery
DX: K35.30 Acute appendicitis with localized peritonitis, without perforation or gangrene (principal)
CPT/HCPCS: 99024

== ENCOUNTER → 2023-05-31 11:08 | Outpatient (BNVA) | payer OTHER, SELFPAY | PROVIDERS: PCP Internal Medicine; Visit Provider Surgery | DX: Z48.815 Encounter for surgical aftercare following surgery on the digestive system (principal); Z98.890 Other specified postprocedural states | CPT/HCPCS: 99212 ==

== ENCOUNTER 2024-01-29 12:40 | Emergency (ER) | payer OTHER, SELFPAY ==
--- NOTE | ~2024-01-29 | XR_ITS ---
EXAMINATION: XR HAND, LEFT CLINICAL INFORMATION: lac to index finger COMPARISON: None available. TECHNIQUE: PA, lateral, and oblique views of the left hand. FINDINGS: No fracture. Alignment is anatomic. Joint spaces are maintained. No erosions or soft tissue calcifications. No radiopaque foreign object. XR/XR hand LT min 3V IMPRESSION: No fracture or dislocation. No radiopaque foreign object. Electronically signed by: Joseph Agee DO 01/29/2024 03:55 PM EST
[2024-01-29 12:42] VITALS: BP 146/84; PULSE 84; RESP 16; TEMP 37.1; O2SAT 98; BMI 27.1
--- NOTE | 2024-01-29 12:43 | ED.WOUNDLAC ---
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 No numbness, tingling, difficulty moving finger, fevers, chills, weakness. Related Data Home Medications ?Medication ?Instructions ?Recorded ?Confirmed No Known Home Meds 05/31/23 05/31/23 Allergies Allergy/AdvReac Type Severity Reaction Status Date / Time No Known Allergies Allergy Verified 01/29/24 12:43 Review of Systems Review of Systems: Yes all other systems are reviewed and are negative PMFSH Past Medical History Attestation statement: The following information was validated with the patient. Source: old records reviewed and nursing notes reviewed Medical History (Updated 01/29/24 @ 13:41 by MARY Gasca) Acute appendicitis Surgical History History of laparoscopic appendectomy (05/18/23) Hx of bilateral inguinal hernia repair Social History Social History Alcohol intake: current Patient Tobacco Use Status: Former Tobacco user Advance Directives: No Advance Directives Information Provided: No Physical Exam Vital Signs: Vital Signs: Last Vital Signs Temp 98.7 F 01/29/24 12:42 Pulse 84 01/29/24 12:42 Resp 16 01/29/24 12:42 BP 146/84 H 01/29/24 12:42 Pulse Ox 98 01/29/24 12:42 O2 Del Method Room Air 01/29/24 12:42 BMI result Body Mass Index 27.1 vss Appearance: Alert.? Oriented X3.? No acute distress.? Head: Normocephalic, atraumatic, no step-offs or deformities Eyes: Pupils equal, round and reactive to light.? CVS: Pulses normal.? Respiratory: No respiratory distress.? Abdomen: Soft and nontender.? Skin: Skin warm and dry.? Normal skin color.? Normal skin turgor.?small lac 1/2 inch lacoverlying left index finger. Palmar aspect. 2+ radial pulses. Normal distal sensation. Extremities 5/5 strength to bilateral upper and lower extremities Neuro: Oriented X 3.? No motor deficit.? No sensory deficit. CN 2-12 intact Course Course Course Narrative: This is a rapid medical exam. Deferred additional HPI, ROS, PE to primary provider. 33 yo male with no known medical history, right hand dominant here with complaints of laceration to left index finger from saw while cutting drywall. Tetanus unknown. Patient with a 3cm laceration over the volar aspect of the digit. Will need wound repair. 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 The remainder was closed with dermabond. Plan- xray pending. Will call if it is abnormal Advised for removal in 7 days. Return w/ new or worsening sx. Time: 15:11 Medications Administered Discontinued Medications Generic Name Dose Route Start Last Admin Trade Name Freq PRN Reason Stop Dose Admin Diphtheria/Tetanus/Acell Pertussis 0.5 ml 01/29/24 13:27 01/29/24 14:05 Diphth,Pertus(Acell),Tet Adult 0.5 Ml Syringe IM 01/29/24 13:28 0.5 ml .ONCE ONE Administration Medical Decision Making Medical Decision Making [facility] Narrative: 1328 33 year old male presents w/ lac to left index finger sp accidentally cutting it on a saw PE- small lac overlying left index finger. 2+ radial pulses. Normal distal sensation. Hx and pe w/ basic lac. unlikley fx, dislocation, nv comprmise, threat to limb Differential Diagnosis Differential Diagnoses: The differential diagnosis associated with the presentation includes (Hx and pe w/ basic lac. unlikley fx, dislocation, nv comprmise, threat to limb) Admission/Observation) Admission/Observation Consideration of admission/observation: Escalation of care including admission/observation considered Independent Interpretation I performed an independent interpretation of an: Plain X-Ray Radiology Impression Discussion of test interpretation with radiology: I have reviewed the radiologist's reading. Discharge Plan Discharge Clinical Impression: Laceration Patient Disposition: Home, Self-Care Additional Instructions: Take your medications as prescribed. If you were prescribed antibiotics today, it is important that you take your medication to their entirety, do not skip any doses, do not finish them early. Follow-up with your primary care provider this week. Return to the emergency department with new or worsening symptoms. In case of emergency call 911 Prescriptions: No Action No Known Home Meds Referrals: Leah Man MD [Primary Care Provider] - 2 days Stand Alone Forms: Work/School Release Print Language: Romanian
--- NOTE | 2024-01-29 13:27 | ED_ITS ---
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 No numbness, tingling, difficulty moving finger, fevers, chills, weakness. Related Data Home Medications ?Medication ?Instructions ?Recorded ?Confirmed No Known Home Meds 05/31/23 05/31/23 Allergies Allergy/AdvReac Type Severity Reaction Status Date / Time No Known Allergies Allergy Verified 01/29/24 12:43 Review of Systems Review of Systems: Yes all other systems are reviewed and are negative PMFSH Past Medical History Attestation statement: The following information was validated with the patient. Source: old records reviewed and nursing notes reviewed Medical History (Updated 01/29/24 @ 13:41 by MARY Gasca) Acute appendicitis Surgical History History of laparoscopic appendectomy (05/18/23) Hx of bilateral inguinal hernia repair Social History Social History Alcohol intake: current Patient Tobacco Use Status: Former Tobacco user Advance Directives: No Advance Directives Information Provided: No Physical Exam Vital Signs: Vital Signs: Last Vital Signs Temp 98.7 F 01/29/24 15:15 Pulse 84 01/29/24 15:15 Resp 16 01/29/24 15:15 BP 146/84 H 01/29/24 15:15 Pulse Ox 98 01/29/24 15:15 O2 Del Method Room Air 01/29/24 15:15 BMI result Body Mass Index 27.1 vss Appearance: Alert.? Oriented X3.? No acute distress.? Head: Normocephalic, atraumatic, no step-offs or deformities Eyes: Pupils equal, round and reactive to light.? CVS: Pulses normal.? Respiratory: No respiratory distress.? Abdomen: Soft and nontender.? Skin: Skin warm and dry.? Normal skin color.? Normal skin turgor.?small lac overlying left index finger. 2+ radial pulses. Normal distal sensation. Extremities 5/5 strength to bilateral upper and lower extremities Neuro: Oriented X 3.? No motor deficit.? No sensory deficit. CN 2-12 intact Course Reevaluation(s) Reevaluation #1: Dermabond used for closure. Time: 13:41 Medications Administered Discontinued Medications Generic Name Dose Route Start Last Admin Trade Name Freq PRN Reason Stop Dose Admin Diphtheria/Tetanus/Acell Pertussis 0.5 ml 01/29/24 13:27 01/29/24 14:05 Diphth,Pertus(Acell),Tet Adult 0.5 Ml Syringe IM 01/29/24 13:28 0.5 ml .ONCE ONE Administration Medical Decision Making Medical Decision Making [facility] Narrative: 1328 33 year old male presents w/ lac to left index finger sp accidentally cutting it on a saw PE- small lac overlying left index finger. 2+ radial pulses. Normal distal sensation. Hx and pe w/ basic lac. unlikley fx, dislocation, nv comprmise, threat to limb Plan- repair Differential Diagnosis Differential Diagnoses: The differential diagnosis associated with the presentation includes (Hx and pe w/ basic lac. unlikley fx, dislocation, nv comprmise, threat to limb) Admission/Observation Consideration of admission/observation: Escalation of care including admission/ observation considered External Record Review External record reviewed: Office record, Outpatient record and Prior outpatient labs Critical Care Time Critical Care Time Critical Care Time: No Discharge Plan Discharge Clinical Impression: Laceration Patient Disposition: Home, Self-Care Additional Instructions: Take your medications as prescribed. If you were prescribed antibiotics today, it is important that you take your medication to their entirety, do not skip any doses, do not finish them early. Follow-up with your primary care provider this week. Return to the emergency department with new or worsening symptoms. In case of emergency call 911 Prescriptions: No Action No Known Home Meds Referrals: Leah Man MD [Primary Care Provider] - 2 days Stand Alone Forms: Work/School Release Interventions: ED Discharge Assessment Last Done: 01/29/24 15:15 Discharge Date/Time: 01/29/24 15:16 Print Language: Yakut
[2024-01-29] MEDS: Diphth,Pertus(ACell),Tet Adult 0.5 ML SYRINGE IM (14:05)
[2024-01-29 15:15] VITALS: BP 146/84; PULSE 84; RESP 16; TEMP 37.1; O2SAT 98
== END 2024-01-29 15:16 | disposition home or self-care (01) ==
PROVIDERS: Emergency Provider Emergency Medicine; PCP Internal Medicine
DX: S61.211A Laceration without foreign body of left index finger without damage to nail, initial encounter (principal); W27.0XXA Contact with workbench tool, initial encounter; Y93.89 Activity, other specified; Y92.89 Other specified places as the place of occurrence of the external cause; Y99.8 Other external cause status; Z79.899 Other long term (current) drug therapy; Z87.891 Personal history of nicotine dependence; Z23 Encounter for immunization
CPT/HCPCS: 12001; 73130; 90471; 90715; 99282; 99284